=== PATIENT | male | born 1980 | race Caucasian/White ===

== ENCOUNTER 2018-10-20 04:17 | Emergency (ER) | payer OTHER ==
[~2018-10-20] VITALS: Ht 180.3 cm; Wt 99.8 kg
[2018-10-20 04:26] VITALS: BP 147/98
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
--- NOTE | 2018-10-20 05:45 | NUR ---
DR. KWOK AT BEDSIDE
[2018-10-20 06:00] VITALS: BP 147/98
--- NOTE | 2018-10-20 06:00 | NUR ---
Patient discharged with v/s stable. Written and verbal after care instructions given and explained by Dr. Pineda. Patient alert, oriented and verbalized understanding of instructions. Ambulatory with steady gait. All questions addressed prior to discharge by Dr. Pineda. ID band removed by Dr. Pineda. Patient advised to follow up with PMD by Dr. Pineda. Rx of LEVAQUIN given by Dr. iPneda. Patient educated on indication of medication including possible reaction and side effects by Dr. Pineda. Opportunity to ask questions provided and answered by Dr. Pineda.
== END 2018-10-20 06:00 | disposition home or self-care (01) ==
LOC: MED 04:17
DX: J20.9 Acute bronchitis, unspecified (principal); K08.89 Other specified disorders of teeth and supporting structures; F17.210 Nicotine dependence, cigarettes, uncomplicated; Z88.0 Allergy status to penicillin
CPT/HCPCS: 99283

== ENCOUNTER 2018-10-21 21:33 | Emergency (ER) | payer OTHER ==
[~2018-10-21] VITALS: Ht 180.3 cm; Wt 90.7 kg
[2018-10-21 21:35] VITALS: BP 149/80
--- NOTE | 2018-10-21 21:35 | NUR ---
Harjit craven, triaged on [facility] and placed into chair E.
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
[2018-10-21 22:11] VITALS: BP 149/80
--- NOTE | 2018-10-21 22:11 | NUR ---
Abrasions to left forehead cleansed with normal saline, patted dry. Bandaid applied. Pt tolerated well.
--- NOTE | 2018-10-21 22:12 | NUR ---
PATIENT EXAMINED BY DR. ROMANO. PATIENT MEDICALLY CLEARED AND RELEASED IN CUSTODY IN STABLE CONDITION. ORIGINAL PRE-BOOK FORM GIVEN TO OFFICER ADAM. PT DISCHARGE INTO CUSTODY OF [facility]. DISCHARGE INSTRUCTIONS GIVEN TO OFFICER ADAM ALONG WITH ORIGINAL PREBOOK FORM. PT AMBULATED WITH STEADY GAIT, AOX4.
== END 2018-10-21 22:12 ==
LOC: MED 21:33
DX: S00.81XA Abrasion of other part of head, initial encounter (principal); Z88.0 Allergy status to penicillin; Y35.891A Legal intervention involving other specified means, law enforcement official injured, initial encounter; Y93.89 Activity, other specified; Y92.513 Shop (commercial) as the place of occurrence of the external cause; Y99.8 Other external cause status
CPT/HCPCS: 90471; 90715; 99283